=== PATIENT | male | born 1965 | race Caucasian/White ===

== ENCOUNTER 2023-08-12 20:18 | Emergency (ER) | payer OTHER ==
[~2023-08-12] VITALS: Ht 185.4 cm; Wt 111.1 kg
[2023-08-12] MEDS ORDERED: ACETAMINOPHEN 325 MG TAB ONE (21:01)
[2023-08-12] MEDS ORDERED: PIPERACILLIN/TAZOBACTAM 3.375 GM VIAL ONE (21:02)
[2023-08-12] MEDS ORDERED: SODIUM CHLORIDE 0.9% 1000ML 1,000 ML ONE (21:02)
[2023-08-12] MEDS: ACETAMINOPHEN 325 MG TAB PO STA (21:04)
[2023-08-12] MEDS: SODIUM CHLORIDE 0.9% 1000ML 1,000 ML IV STA ×2 (21:05→22:56)
[2023-08-12 21:09] LABS: BASOPHILS # (AUTO) 0.1 (0.0-0.1); BASOPHILS % 0.5 % (0.0-1.0); EOSINOPHILS % 0.3 % (0.0-6.0); HEMATOCRIT 45.1 % (38.2-49.6); HEMOGLOBIN 15.4 g/dL (14.0-18.0); LYMPHOCYTES # (AUTO) 0.8 (1.0-3.2); LYMPHOCYTES % 7.5 % (18.0-39.1); MEAN CORPUSCULAR HEMOGLOBIN 29.7 pg (28-32); MEAN CORPUSCULAR HGB CONC 34.1 g/dL (31-35); MEAN CORPUSCULAR VOLUME 87.1 fL (81-99); MONOCYTES # (AUTO) 1.2 (0.2-0.8); MONOCYTES % 11.3 % (4.4-11.3); NEUTROPHILS # (AUTO) 8.2 (2.1-6.9); NEUTROPHILS % 79.9 % (38.7-80.0); PLATELET COUNT 222 x10e3/uL (140-360); RED BLOOD COUNT 5.18 x10e6/uL (4.3-5.7); RED CELL DISTRIBUTION WIDTH 13.5 % (11.7-14.4)
[2023-08-12 21:26] LABS: ALBUMIN 3.2 g/dL (3.5-5.0); ALBUMIN/GLOBULIN RATIO 0.7 (0.8-2.0); ANION GAP 16.2 mmol/L (8-16); BILIRUBIN,TOTAL 0.9 mg/dL (0.2-1.2); CALCIUM 9.3 mg/dL (8.4-10.2); CREATININE, SERUM 0.98 mg/dL (0.72-1.25); POTASSIUM 4.2 mmol/L (3.5-5.1)
[2023-08-12] MEDS ORDERED: IOPAMIDOL 370 MG/ML 100 ML INFUS..BTL INJ ONE (21:39)
[2023-08-12 22:04] LABS: BILIRUBIN,URINE NEGATIVE (NEGATIVE); CLARITY,URINE CLEAR (CLEAR); COLOR,URINE YELLOW (YELLOW); GLUCOSE, URINE NEGATIVE (NEGATIVE); KETONES,URINE NEGATIVE (NEGATIVE); LEUKOCYTE ESTERASE ,URINE NEGATIVE (NEGATIVE); NITRITE,URINE NEGATIVE (NEGATIVE); PH,URINE 5.5 (5 - 7); PROTEIN,URINE DIPSTICK 1+ (NEGATIVE); URINE UROBILINOGEN 0.2 mg/dL (0.2 - 1)
[2023-08-12 22:20] LABS: BACTERIA,URINE MANY /HPF; EPITHELIAL CELLS,URINE FEW /LPF; RBC,URINE 0-5 /HPF (0-5)
[2023-08-12 22:24] LABS: TROPONIN I 0.059 ng/mL (0-0.300)
[2023-08-12] MEDS: IBUPROFEN 600 MG TAB PO STA (22:57)
[2023-08-12] MEDS ORDERED: IBUPROFEN 600 MG TAB ONE (23:00)
[2023-08-12 23:59] VITALS: O2SAT 99
[2023-08-13] MEDS ORDERED: AMOX TR-K CLV1 EAC2 PO (00:03)
[2023-08-13] MEDS ORDERED: KETOROLAC TROME10 MG PO (00:04)
[2023-08-14] MEDS ORDERED: CEFDINIR300 MG PO (02:39)
[2023-08-18] MEDS ORDERED: AZITHROMYCIN250 MG PO (10:35)
[2023-08-18] MEDS ORDERED: AMOX TR-K CLV1 EAC2 PO (10:35)
[2023-08-18] MEDS ORDERED: ACETAMINOPHEN325 M1 PO (10:35)
[2023-08-18] MEDS ORDERED: ONDANSETRON ODT4 MG PO (10:35)
== END 2023-08-13 00:10 | disposition home or self-care (01) ==
LOC: ER 21:02
DX: R50.9 Fever, unspecified (principal); R10.30 Lower abdominal pain, unspecified; R51.9 Headache, unspecified; R91.8 Other nonspecific abnormal finding of lung field; Z11.52 Encounter for screening for COVID-19; F17.210 Nicotine dependence, cigarettes, uncomplicated
CPT/HCPCS: 36415; 74177; 80053; 81001; 82550; 83605; 83690; 84484; 85025; 87040; 87400; 93005; 99284; J2543; J7030; Q9967; U0002